=== PATIENT | male | born 1945 | race Caucasian/White ===

== ENCOUNTER 2017-03-03 10:12 | Emergency (ER) | payer MEDICARE ==
[~2017-03-03] VITALS: Ht 177.8 cm; Wt 77.1 kg
[2017-03-03 10:54] VITALS: BP 130/82
[2017-03-03 11:19] LABS: APPEARANCE,URINE CLEAR; KETONES,URINE NEGATIVE (NEGATIVE); LEUKOCYTE ESTERASE ,URINE 2+ (NEGATIVE); NITRITE,URINE NEGATIVE (NEGATIVE); PH,URINE 6 (4.5-8.0); PROTEIN,URINE NEGATIVE (NEGATIVE); UROBILINOGEN,URINE NORMAL MG/DL (0.0-1.0)
[2017-03-03 11:32] LABS: BACTERIA,URINE FEW /HPF; MUCUS,URINE FEW /LPF (NONE/OCC); SQUAMOUS EPITHELIAL CELL,UR OCCASIONAL /LPF (NONE/OCC)
[2017-03-03] MEDS ORDERED: NITROFURANTOIN100 M2 ORAL (11:40)
[2017-03-03 11:51] VITALS: BP 130/82
--- NOTE | 2017-03-03 13:47 | Emergency Room Report ---
History of Present Illness General Chief Complaint: Male Urogenital Problems Source: Patient Present Illness HPI [id number] [employer] patient with urinary frequency for 3 days. No blood No fever/chills, nausea/vomiting, abd pain, diarrhea History of enlarged prostate No rectal pain Allergies: Coded Allergies: No Known Allergies (Unverified , 03/03/17) Patient History Past Medical History: other - "testicular cancer" Past Surgical History: none Pertinent Family History: none Social History: Denies: alcohol use, drug use, smoking Immunizations: UTD Reviewed Nursing Documentation: PMH: Agreed, PSxH: Agreed Nursing Documentation-PMH Past Medical History: No History, Except For Hx Cancer: Yes - Prostate 2013 Review of Systems All Other Systems: negative except mentioned in HPI Physical Exam Vital Signs Date Time Temp Pulse Resp B/P Pulse Ox O2 Delivery O2 Flow Rate FiO2 03/03/17 10:19 97.9 87 14 130/82 96 Room Air Sp02 EP Interpretation: reviewed, normal General Appearance: normal inspection, well appearing, no apparent distress, alert, GCS 15, non-toxic Head: normocephalic, atraumatic Eyes: bilateral eye EOMI, bilateral eye PERRL ENT: normal ENT inspection, hearing grossly normal, normal voice Neck: normal inspection, full range of motion, supple, no bony tend Respiratory: normal inspection, lungs clear, normal breath sounds, no respiratory distress, no retraction, no wheezing Cardiovascular #1: regular rate, rhythm, no edema Gastrointestinal: normal inspection, normal bowel sounds, non tender, soft, no guarding, no hernia Genitourinary: no CVA tenderness Musculoskeletal: normal inspection, back normal, normal range of motion, Melania' s Sign negative Neurologic: normal inspection, alert, oriented x3, responsive, metal technician III-XII nml as tested, motor strength/tone normal, speech normal Psychiatric: normal inspection, judgement/insight normal, mood/affect normal Skin: normal inspection, normal color, no rash Medical Decision Making Diagnostic Impression: Primary Impression: UTI (urinary tract infection) Qualified Codes: N30.01 - Acute cystitis with hematuria ER Course VSS. Afebrile No systemic symptoms Rx Macrobid Uncomplicated cystitis PMD followup Last Vital Signs Date Time Temp Pulse Resp B/P Pulse Ox O2 Delivery O2 Flow Rate FiO2 03/03/17 11:51 97.9 87 14 130/82 96 Room Air Status: improved Disposition: HOME, SELF-CARE Condition: Improved Scripts Nitrofurantoin Monohyd/M-Cryst* (MACROBID 100 MG*) 100 Mg Capsule 100 MG ORAL EVERY 12 HOURS for 7 Days, #14 CAP Prov: PAPO DIXON M.D. 03/03/17 Patient Instructions: Urinary Tract Infection PAPO DIXON M.D. Mar 03, 2017 13:47
== END 2017-03-03 11:54 | disposition home or self-care (01) ==
LOC: EMR 11:23
DX: N30.01 Acute cystitis with hematuria (principal); Z85.46 Personal history of malignant neoplasm of prostate; N40.1 Benign prostatic hyperplasia with lower urinary tract symptoms
CPT/HCPCS: 81003; 87086; 99283

== ENCOUNTER 2018-03-01 18:13 | Emergency (ER) | payer MEDICARE ==
[~2018-03-01] VITALS: Ht 175.3 cm; Wt 79.4 kg
[~2018-03-01 18:13] MED LIST: NITROFURANTOIN100 M2 ORAL
[2018-03-01] MEDS ORDERED: METOPROLOL TART25 MG ORAL (18:25)
[2018-03-01] MEDS ORDERED: ATORVASTATIN CA40 MG ORAL (18:25)
[2018-03-01] MEDS ORDERED: ASPIR 8181 MG ORAL (18:25)
[2018-03-01 18:48] VITALS: BP 107/65
--- NOTE | 2018-03-01 19:05 | Emergency Room Report ---
History of Present Illness General Chief Complaint: Dyspnea/Respdistress Source: Patient, Medical Record Present Illness HPI HPI This patient with daughter, took two Xanax today, does not know the dose. Employer/friend gave him the pills. He c/o feeling sleepy. No trauma, no fever, no shortness of breath, no travel history, no leg swelling. no chest pain, no diaphoresis, no exertional complaints, no nausea, no vomiting, no diarrhea, no abdominal pain. Tolerating po fine, normal urinary output, normal bm. No syncope , LOC, dizziness, lightheadedness, headache. Mar 01, 2018 18:58 Allergies: Coded Allergies: No Known Allergies (Unverified , 03/03/17) Nursing Documentation-[facility] Past Medical History: No History, Except For Hx Cardiac Problems: Yes - stroke 2017 Hx Cancer: Yes - Prostate 2013 Review of Systems Constitutional: Reports: no symptoms Eye: Reports: no symptoms ENT: Reports: no symptoms Respiratory: Reports: no symptoms Cardiovascular: Reports: no symptoms Gastrointestinal: Reports: no symptoms Genitourinary: Reports: no symptoms Musculoskeletal: Reports: no symptoms Skin: Reports: no symptoms Psychiatric: Reports: no symptoms Neurological: Reports: no symptoms Endocrine: Reports: no symptoms Hematologic/Lymphatic: Reports: no symptoms Allergic: Reports: no symptoms Physical Exam Vital Signs Date Time Temp Pulse Resp B/P (MAP) Pulse Ox O2 Delivery O2 Flow Rate FiO2 03/01/18 18:22 97.0 89 18 108/77 94 Room Air 97.0 Sp02 EP Interpretation: reviewed, normal General Appearance: normal inspection, well appearing, no apparent distress, alert, GCS 15, non-toxic Head: normocephalic, atraumatic Eyes: bilateral eye normal inspection, bilateral eye PERRL, bilateral eye EOMI ENT: normal ENT inspection, hearing grossly normal, normal pharynx, no angioedema, normal voice, moist mucus membranes Neck: normal inspection, full range of motion, supple, no meningismus, no bony tend Respiratory: normal inspection, lungs clear, normal breath sounds, no rhonchi, no respiratory distress, no retraction, no accessory muscle use, no wheezing Cardiovascular #1: normal inspection, regular rate, rhythm, no edema Gastrointestinal: normal inspection, normal bowel sounds, non tender, soft, no mass, non-distended Musculoskeletal: gait/station normal, normal range of motion Neurologic: normal inspection, alert, oriented x3, responsive, motor strength/ tone normal Psychiatric: normal inspection, judgement/insight normal, memory normal Suicide Risk Assessment: Suicidal Ideation: No Had intent to initiate attempt: No Pt's plan for suicide attempt: No Has means to complete attempt: No Skin: normal inspection, normal color, no rash, warm/dry Medical Decision Making Diagnostic Impression: Primary Impression: Adverse effects of medication ER Course history c/w Xanax; ekg no ectopy, normal intervals, labs ok EKG Diagnostic Results EKG Time: 19:03 EP Interpretation: 80 NSR iRBBB, right axis Rate: normal Rhythm: NSR ST Segments: no acute changes ASA given to the pt in ED: No Rhythm Strip Diag. Results Rhythm Strip Time: 19:03 EP Interpretation: yes Rhythm: NSR, no PVC's, no ectopy Last Vital Signs Date Time Temp Pulse Resp B/P (MAP) Pulse Ox O2 Delivery O2 Flow Rate FiO2 03/01/18 18:48 85 18 107/65 97 Room Air 03/01/18 18:22 97.0 97.0 Status: improved Disposition: HOME, SELF-CARE Condition: Improved Patient Instructions: Form - [place] Medication Form bAdulkadir Monzon M.D. Mar 01, 2018 19:05
[2018-03-01 19:10] LABS: BASOPHILS % (AUTO) 1.7 % (0.0-2.0); EOSINOPHILS % (AUTO) 0.5 % (0.0-3.0); HEMATOCRIT 45.6 % (42.0-52.0); HEMOGLOBIN 15.5 G/DL (14.2-18.0); LYMPHOCYTES % (AUTO) 11.1 % (20.0-45.0); MEAN CORPUSCULAR VOLUME 91 FL (80-99); MONOCYTES % (AUTO) 7.2 % (1.0-10.0); NEUTROPHILS % (AUTO) 79.4 % (45.0-75.0); PLATELET COUNT 186 K/UL (150-450); RED BLOOD COUNT 4.99 M/UL (4.70-6.10); WHITE BLOOD COUNT 7.5 K/UL (4.8-10.8)
[2018-03-01 19:19] LABS: ANION GAP 6 mmol/L (5-15); BLOOD UREA NITROGEN 27 mg/dL (7-18); CALCIUM 7.9 MG/DL (8.5-10.1); CARBON DIOXIDE 24 MMOL/L (21-32); CHLORIDE 107 MMOL/L (98-107); CREATININE 0.8 MG/DL (0.55-1.30); POTASSIUM 3.6 MMOL/L (3.5-5.1); SODIUM 137 MMOL/L (136-145)
[2018-03-01 19:50] VITALS: BP 130/93
[2018-03-01 20:25] VITALS: BP 130/93
== END 2018-03-01 20:25 | disposition home or self-care (01) ==
LOC: EMR 19:03
DX: R06.00 Dyspnea, unspecified (principal); R53.1 Weakness; T42.4X5A Adverse effect of benzodiazepines, initial encounter; Y92.9 Unspecified place or not applicable; Z85.46 Personal history of malignant neoplasm of prostate; Z86.73 Personal history of transient ischemic attack (TIA), and cerebral infarction without residual deficits
CPT/HCPCS: 36415; 80048; 85025; 93005; 99283

== ENCOUNTER 2018-04-08 09:24 | Inpatient (IN) | payer MEDICARE ==
[~2018-04-08] VITALS: Ht 177.8 cm; Wt 75.3 kg
[~2018-04-08 09:24] MED LIST changes: +ASPIR 8181 MG ORAL; +ATORVASTATIN CA40 MG ORAL; +METOPROLOL TART25 MG ORAL
[2018-04-08 09:36] VITALS: BP 131/77
--- NOTE | 2018-04-08 10:07 | Emergency Room Report ---
History of Present Illness General Chief Complaint: Generalized Weakness Source: Patient Present Illness HPI Patient presents with 2 days of weakness. He states he can't swallow at this time. He's had difficulty swallowing ever since he had a stroke in July. Apparently he received TPA. According to him and his family everything had resolved although he states that he has had difficulty eating. He is being treated for depression. There is no extremity weakness right now but he feels generalized weakness. He is denies cough fever chest pain. Patient denies headache. He took aspirin this morning. He had a stroke in July. It affected his tongue. He has had much recovery but states he still has difficulty swallowing. No problems forming his words. H/O bladder CA(family reported prostate CA, prior visit listed "testicular" CA) . Prior UTIs. No fevers, chills, dysuria. No abdominal pain. No change in bowels. No NVD. No rashes. Allergies: Coded Allergies: No Known Allergies (Unverified , 03/03/17) Patient History Past Medical History: see triage record Social History: Denies: smoking, alcohol use, drug use Social History Narrative here with daughter Reviewed Nursing Documentation: PMH: Agreed; PSxH: Agreed Nursing Documentation-PMH Hx Cardiac Problems: Yes - stroke 2016 Hx Cancer: Yes - Prostate 2013 Review of Systems All Other Systems: negative except mentioned in HPI Physical Exam Vital Signs Date Time Temp Pulse Resp B/P (MAP) Pulse Ox O2 Delivery O2 Flow Rate FiO2 04/08/18 09:28 98.3 87 18 131/77 88 Room Air 98.2 Sp02 EP Interpretation: reviewed, normal General Appearance: well appearing, no apparent distress, GCS 15 Head: normocephalic Eyes: left eye other - L ptosis; bilateral eye PERRL, bilateral eye EOMI ENT: moist mucus membranes Neck: supple Respiratory: lungs clear, normal breath sounds Cardiovascular #1: regular rate, rhythm Cardiovascular #2: 2+ radial (R) Gastrointestinal: normal inspection, normal bowel sounds, non tender, no mass, non-distended Musculoskeletal: back normal, gait/station normal, normal range of motion Neurologic: alert, oriented x3, drawing frame tender III-XII nml as tested - except for ptosis, motor strength/tone normal, DTRs symmetric, sensory intact, normal gait, speech normal Psychiatric: depressed affect Skin: normal inspection, warm/dry Medical Decision Making Diagnostic Impression: Primary Impression: Dysphagia Qualified Codes: R13.10 - Dysphagia, unspecified Additional Impressions: Lacunar infarction Depression Qualified Codes: F32.89 - Other specified depressive episodes ER Course Patient with worsened weakness and difficulty swallowing last 2 days. DDx: CVA , lacunar infarct, exacerbation of depression, electrolyte abnormality amongst others. Evaluation with CT, EKG, CXR and labs. Treatment with IV hydration and cardiac observation. EKG RBBB with PVCs. CXR increase cor, no infiltrates. CT with lacunar infarct. Labs normal CBC, CMP. Elevated BNP. U tox + opiates. Patient still with weakness and stated difficulty swallowing. Need for admission, swallow study, cardiac evaluation, neurologic evaluation and possibly MRI. Admit telemetry, Dr. Nicole. (ERMD initiated eval for PMD ID.) Labs Test 04/08/18 10:15 04/08/18 11:10 04/09/18 06:40 White Blood Count 8.6 K/UL (4.8-10.8) 6.7 K/UL (4.8-10.8) Red Blood Count 4.88 M/UL (4.70-6.10) 4.53 M/UL (4.70-6.10) Hemoglobin 14.9 G/DL (14.2-18.0) 14.0 G/DL (14.2-18.0) Hematocrit 44.3 % (42.0-52.0) 41.2 % (42.0-52.0) Mean Corpuscular Volume 91 FL (80-99) 91 FL (80-99) Mean Corpuscular Hemoglobin 30.4 PG (27.0-31.0) 31.0 PG (27.0-31.0) Mean Corpuscular Hemoglobin Concent 33.6 G/DL (32.0-36.0) 34.1 G/DL (32.0-36.0) Red Cell Distribution Width 10.8 % (11.6-14.8) 10.8 % (11.6-14.8) Platelet Count 200 K/UL (150-450) 203 K/UL (150-450) Mean Platelet Volume 8.9 FL (6.5-10.1) 8.0 FL (6.5-10.1) Neutrophils (%) (Auto) 77.6 % (45.0-75.0) 74.5 % (45.0-75.0) Lymphocytes (%) (Auto) 14.3 % (20.0-45.0) 15.9 % (20.0-45.0) Monocytes (%) (Auto) 6.3 % (1.0-10.0) 7.5 % (1.0-10.0) Eosinophils (%) (Auto) 0.7 % (0.0-3.0) 1.2 % (0.0-3.0) Basophils (%) (Auto) 1.1 % (0.0-2.0) 0.9 % (0.0-2.0) Prothrombin Time 10.2 SEC (9.30-11.50) Prothromb Time International Ratio 1.0 (0.9-1.1) Activated Partial Thromboplast Time 31 SEC (23-33) Sodium Level 140 MMOL/L (136-145) 142 MMOL/L (136-145) Potassium Level 3.8 MMOL/L (3.5-5.1) 3.9 MMOL/L (3.5-5.1) Chloride Level 106 MMOL/L (98-107) 107 MMOL/L (98-107) Carbon Dioxide Level 26 MMOL/L (21-32) 29 MMOL/L (21-32) Anion Gap 8 mmol/L (5-15) 6 mmol/L (5-15) Blood Urea Nitrogen 17 mg/dL (7-18) 10 mg/dL (7-18) Creatinine 0.8 MG/DL (0.55-1.30) 0.8 MG/DL (0.55-1.30) Estimat Glomerular Filtration Rate > 60 mL/min (>60) > 60 mL/min (>60) Glucose Level 95 MG/DL (74-106) 96 MG/DL (74-106) Hemoglobin A1c 5.8 % (4.3-6.0) Calcium Level 8.0 MG/DL (8.5-10.1) 8.1 MG/DL (8.5-10.1) Total Bilirubin 0.7 MG/DL (0.2-1.0) Aspartate Amino Transf (AST/SGOT) 14 U/L (15-37) Alanine Aminotransferase (ALT/SGPT) 14 U/L (12-78) Alkaline Phosphatase 64 U/L (46-116) Total Creatine Kinase 59 U/L (26-308) Troponin I 0.000 ng/mL (0.000-0.056) Pro-B-Type Natriuretic Peptide 323 pg/mL (0-125) Total Protein 6.5 G/DL (6.4-8.2) Albumin 2.8 G/DL (3.4-5.0) Globulin 3.7 g/dL Albumin/Globulin Ratio 0.8 (1.0-2.7) Serum Alcohol < 3 mg/dL Urine Color Yellow Urine Appearance Clear Urine pH 6 (4.5-8.0) Urine Specific [place] 1.015 (1.005-1.035) Urine Protein 1+ (NEGATIVE) Urine Glucose (UA) Negative (NEGATIVE) Urine Ketones Negative (NEGATIVE) Urine Occult Blood 2+ (NEGATIVE) Urine Nitrite Negative (NEGATIVE) Urine Bilirubin Negative (NEGATIVE) Urine Urobilinogen 4 MG/DL (0.0-1.0) Urine Leukocyte Esterase 1+ (NEGATIVE) Urine RBC 2-4 /HPF (0 - 0) Urine WBC 2-4 /HPF (0 - 0) Urine Squamous Epithelial Cells Occasional /LPF Urine Bacteria Occasional /HPF (NONE) Urine Opiates Screen Positive (NEGATIVE) Urine Barbiturates Screen Negative (NEGATIVE) Phencyclidine (PCP) Screen Negative (NEGATIVE) Urine Amphetamines Screen Negative (NEGATIVE) Urine Benzodiazepines Screen Negative (NEGATIVE) Urine Cocaine Screen Negative (NEGATIVE) Urine Marijuana (THC) Screen Negative (NEGATIVE) Erythrocyte Sedimentation Rate 32 MM/HR (0-20) Triglycerides Level 66 MG/DL (30-150) Cholesterol Level 130 MG/DL (< 200) LDL Cholesterol 86 mg/dL (<100) HDL Cholesterol 38 MG/DL (40-60) Cholesterol/HDL Ratio 3.4 (3.3-4.4) Vitamin B12 Level 504 PG/ML (193-986) Folate 15.5 NG/ML (8.6-58.9) Thyroid Stimulating Hormone (TSH) 0.307 uiU/mL (0.358-3.740) EKG Diagnostic Results Rate: normal Rhythm: NSR ST Segments: no acute changes - RBBB Rhythm Strip Diag. Results EP Interpretation: yes Rhythm: NSR, no PVC's, other - PACs Chest X-Ray Diagnostic Results Chest X-Ray Diagnostic Results : Chest X-Ray Ordered: Yes # of Views/Limited/Complete: 1 View Indication: Other EP Interpretation: Yes Interpretation: no consolidation, no effusion, no pneumothorax, other - inc cor Impression: Other Electronically Signed by: Ishan Medina MD CT/MRI/US Diagnostic Results CT/MRI/US Diagnostic Results : Imaging Test Ordered: head Impression lacunar infarct (old) Last Vital Signs Date Time Temp Pulse Resp B/P (MAP) Pulse Ox O2 Delivery O2 Flow Rate FiO2 04/08/18 09:36 98.2 89 18 131/77 97 Room Air 98.2 Status: unchanged Disposition: ADMITTED INPATIENT Condition: Serious Referrals: NOT CHOSEN SHRAVAN/,REFERRING (PCP) Ishan Medina M.D. Apr 08, 2018 10:07
[2018-04-08 10:30] LABS: BASOPHILS % (AUTO) 1.1 % (0.0-2.0); EOSINOPHILS % (AUTO) 0.7 % (0.0-3.0); HEMATOCRIT 44.3 % (42.0-52.0); HEMOGLOBIN 14.9 G/DL (14.2-18.0); LYMPHOCYTES % (AUTO) 14.3 % (20.0-45.0); MEAN CORPUSCULAR VOLUME 91 FL (80-99); MONOCYTES % (AUTO) 6.3 % (1.0-10.0); NEUTROPHILS % (AUTO) 77.6 % (45.0-75.0); PLATELET COUNT 200 K/UL (150-450); RED BLOOD COUNT 4.88 M/UL (4.70-6.10); RED CELL DISTRIBUTION WIDTH 10.8 % (11.6-14.8); WHITE BLOOD COUNT 8.6 K/UL (4.8-10.8)
[2018-04-08 10:39] LABS: ANION GAP 8 mmol/L (5-15); BLOOD UREA NITROGEN 17 mg/dL (7-18); CARBON DIOXIDE 26 MMOL/L (21-32); CHLORIDE 106 MMOL/L (98-107); CREATININE 0.8 MG/DL (0.55-1.30); POTASSIUM 3.8 MMOL/L (3.5-5.1); SODIUM 140 MMOL/L (136-145)
--- NOTE | 2018-04-08 10:45 | Diagnostic Imaging Report ---
Indications: Left-sided weakness there is 2 days, difficulty swallowing Technique: Spiral acquisitions obtained through the brain. Angled axial and coronal 5 x 5 mm slices were reconstructed. Total dose length product 1372.57 mGycm. CTDI vol(s) 70.38 mGy. Dose reduction achieved using automated exposure control Comparison: None. Findings: There is age-related enlargement of the ventricles and extra axial CSF spaces. There is periventricular deep white matter chronic ischemic change. Old lacunar infarct is seen in the anterior limb of the right internal capsule. No acute intracranial hemorrhage nor edema, mass effect, nor midline shift. Intact calvarium. Visualized orbits and sinuses are unremarkable. The mastoids are clear. Normal black-white differentiation. Impression: Chronic and age-related changes, as described Old right internal capsule lacunar infarct Negative for acute intracranial bleed or mass effect The CT scanner at [facility] is accredited by the [employer] and the scans are performed using protocols designed to limit radiation exposure to as low as reasonably achievable to attain images of sufficient resolution adequate for diagnostic evaluation.
[2018-04-08 10:49] LABS: ALANINE AMINOTRANSFERASE 14 U/L (12-78); ALBUMIN 2.8 G/DL (3.4-5.0); ALBUMIN/GLOBULIN RATIO 0.8 (1.0-2.7); ALKALINE PHOSPHATASE 64 U/L (46-116); ASPARTATE AMINO TRANSFERASE 14 U/L (15-37); BILIRUBIN,TOTAL 0.7 MG/DL (0.2-1.0); CREATINE KINASE 59 U/L (26-308)
[2018-04-08 11:38] LABS: APPEARANCE,URINE CLEAR; BILIRUBIN, URINE NEGATIVE (NEGATIVE); GLUCOSE, URINE (UA) NEGATIVE (NEGATIVE); KETONES,URINE NEGATIVE (NEGATIVE); LEUKOCYTE ESTERASE ,URINE 1+ (NEGATIVE); NITRITE,URINE NEGATIVE (NEGATIVE); PH,URINE 6 (4.5-8.0); PROTEIN,URINE 1+ (NEGATIVE); UROBILINOGEN,URINE 4 MG/DL (0.0-1.0)
[2018-04-08 11:50] LABS: COLOR,URINE YELLOW
[2018-04-08 12:04] VITALS: BP 125/66
--- NOTE | 2018-04-08 12:05 | Diagnostic Imaging Report ---
Indication: Chest pain Technique: One view of the chest Comparison: none Findings: The heart is enlarged. There are atelectatic changes at both lung bases. No definite acute infiltrates, effusions, or congestion. The aorta is tortuous and calcified Impression: Cardiomegaly. No definite acute process
[2018-04-08 13:38] VITALS: BP 133/89
[2018-04-08] MEDS ORDERED: LORazepam 1mg tab ORAL PRN (14:00)
[2018-04-08] MEDS ORDERED: Albuterol/Ipratropium 3ml neb HHN PRN (14:00)
[2018-04-08] MEDS ORDERED: Miralax 17gm pkt ORAL PRN (14:00)
--- NOTE | 2018-04-08 14:11 | History & Physical ---
Tiffany Asif NP 04/08/18 1411: History and Physical History & Physicial dictated #[id number] Vladimir Nicole MD 04/08/182020: History and Physical History & Physicial The patient was seen and examined at bedside and all new and available data was reviewed in the patients chart. I agree with the above findings, impression and plan. (Patient seen earlier today. Signature stamp does not reflect patient encounter time.). -MD Yefri Bernabe Jacqueline Robles NP Apr 08, 2018 14:11 Vladimir Nicole MD Apr 08, 2018 20:21
--- NOTE | 2018-04-08 15:01 | GI Initial Consult Note ---
History of Present Illness General Date patient seen: Apr 08, 2018 Time patient seen: 14:55 Reason for Hospitalization: Generalized Weakness Referring physician: LUCIA GUY Reason for Consultation: DYSPHAGIA Present Illness HPI Patient presents with 2 days of weakness. He states he can't swallow at this time. He's had difficulty swallowing ever since he had a stroke in July. Apparently he received TPA. According to him and his family everything had resolved although he states that he has had difficulty eating. He is being treated for depression. There is no extremity weakness right now but he feels generalized weakness. He is denies cough fever chest pain. Patient denies headache. GI consulted for dysphagia. Pt seen, awake A&Ox4 NAD with no active s/sx of N/V /D. Has c/o of dysphagia which is causing him to have a loss of appetite. In addition, has c/o of abdominal bloating and constipation. No anemia. No leukocytosis. Normal LFTs. No history of EGD. Last colonoscopy 10+ years ago. Home Meds Active Scripts Nitrofurantoin Monohyd/M-Cryst* (MACROBID 100 MG*) 100 Mg Capsule, 100 MG ORAL EVERY 12 HOURS for 7 Days, #14 CAP Prov:PAPO DIXON M.D. 03/03/17 Reported Medications Aspirin* (ASPIR 81*) 81 Mg Tablet.dr, 81 MG ORAL DAILY, TAB 03/01/18 Atorvastatin Calcium* (ATORVASTATIN CALCIUM*) 40 Mg Tablet, 80 MG ORAL BEDTIME, TAB 03/01/18 Metoprolol Tartrate* (METOPROLOL TARTRATE*) 25 Mg Tablet, 25 MG ORAL EVERY 12 HOURS, TAB 03/01/18 Med list reviewed/reconciled: Yes Allergies: Coded Allergies: No Known Allergies (Unverified , 03/03/17) Patient History History Provided By: Patient, Medical Record PMH Narrative Past Medical History: see triage record Social History: Denies: smoking Reviewed Nursing Documentation: PMH: Agreed; PSxH: Agreed Nursing Documentation-PMH Hx Cardiac Problems: Yes - stroke 2016 Hx Cancer: Yes - Prostate 2012 Social History: Denies: smoking, alcohol use, drug use, other Review of Systems All Other Systems: negative except mentioned in HPI Physical Exam Vital Signs Date Time Temp Pulse Resp B/P (MAP) Pulse Ox O2 Delivery O2 Flow Rate FiO2 04/08/18 09:28 98.3 87 18 131/77 88 Room Air 98.2 Sp02 EP Interpretation: reviewed, normal Labs Laboratory Tests Test 04/08/18 10:15 04/08/18 11:10 White Blood Count 8.6 K/UL (4.8-10.8) Red Blood Count 4.88 M/UL (4.70-6.10) Hemoglobin 14.9 G/DL (14.2-18.0) Hematocrit 44.3 % (42.0-52.0) Mean Corpuscular Volume 91 FL (80-99) Mean Corpuscular Hemoglobin 30.4 PG (27.0-31.0) Mean Corpuscular Hemoglobin Concent 33.6 G/DL (32.0-36.0) Red Cell Distribution Width 10.8 % (11.6-14.8) L Platelet Count 200 K/UL (150-450) Mean Platelet Volume 8.9 FL (6.5-10.1) Neutrophils (%) (Auto) 77.6 % (45.0-75.0) H Lymphocytes (%) (Auto) 14.3 % (20.0-45.0) L Monocytes (%) (Auto) 6.3 % (1.0-10.0) Eosinophils (%) (Auto) 0.7 % (0.0-3.0) Basophils (%) (Auto) 1.1 % (0.0-2.0) Prothrombin Time 10.2 SEC (9.30-11.50) Prothromb Time International Ratio 1.0 (0.9-1.1) Activated Partial Thromboplast Time 31 SEC (23-33) Sodium Level 140 MMOL/L (136-145) Potassium Level 3.8 MMOL/L (3.5-5.1) Chloride Level 106 MMOL/L (98-107) Carbon Dioxide Level 26 MMOL/L (21-32) Anion Gap 8 mmol/L (5-15) Blood Urea Nitrogen 17 mg/dL (7-18) Creatinine 0.8 MG/DL (0.55-1.30) Estimat Glomerular Filtration Rate > 60 mL/min (>60) Glucose Level 95 MG/DL (74-106) Calcium Level 8.0 MG/DL (8.5-10.1) L Total Bilirubin 0.7 MG/DL (0.2-1.0) Aspartate Amino Transf (AST/SGOT) 14 U/L (15-37) L Alanine Aminotransferase (ALT/SGPT) 14 U/L (12-78) Alkaline Phosphatase 64 U/L (46-116) Total Creatine Kinase 59 U/L (26-308) Troponin I 0.000 ng/mL (0.000-0.056) Pro-B-Type Natriuretic Peptide 323 pg/mL (0-125) H Total Protein 6.5 G/DL (6.4-8.2) Albumin 2.8 G/DL (3.4-5.0) L Globulin 3.7 g/dL Albumin/Globulin Ratio 0.8 (1.0-2.7) L Serum Alcohol < 3 mg/dL Urine Color Yellow Urine Appearance Clear Urine pH 6 (4.5-8.0) Urine Specific [place] 1.015 (1.005-1.035) Urine Protein 1+ (NEGATIVE) H Urine Glucose (UA) Negative (NEGATIVE) Urine Ketones Negative (NEGATIVE) Urine Occult Blood 2+ (NEGATIVE) H Urine Nitrite Negative (NEGATIVE) Urine Bilirubin Negative (NEGATIVE) Urine Urobilinogen 4 MG/DL (0.0-1.0) H Urine Leukocyte Esterase 1+ (NEGATIVE) H Urine RBC 2-4 /HPF (0 - 0) H Urine WBC 2-4 /HPF (0 - 0) Urine Squamous Epithelial Cells Occasional /LPF Urine Bacteria Occasional /HPF (NONE) Urine Opiates Screen Positive (NEGATIVE) H Urine Barbiturates Screen Negative (NEGATIVE) Phencyclidine (PCP) Screen Negative (NEGATIVE) Urine Amphetamines Screen Negative (NEGATIVE) Urine Benzodiazepines Screen Negative (NEGATIVE) Urine Cocaine Screen Negative (NEGATIVE) Urine Marijuana (THC) Screen Negative (NEGATIVE) General Appearance: well appearing, no apparent distress, alert Head: normocephalic EENT: PERRL/EOMI, normal ENT inspection Neck: supple Respiratory: normal breath sounds, no respiratory distress Cardiovascular: normal rate Gastrointestinal: normal inspection, non tender, soft, normal bowel sounds, non -distended Rectal: deferred Genitourinary: deferred Musculoskeletal: normal inspection, back normal Neurologic: normal inspection, alert, oriented x3, responsive Psychiatric: normal inspection, judgement/insight normal, memory normal Skin: normal inspection, normal color, no rash, warm/dry, palpation normal, well hydrated Lymphatic: normal inspection, no adenopathy Current Medications Current Medications Medications (Trade) Dose Ordered Sig/Jeffery Route PRN Reason Start Time Stop Time Status Last Admin Dose Admin Acetaminophen (Tylenol) 650 mg Q4H PRN ORAL Mild Pain (Pain Scale 1-3) 04/08/18 14:00 05/08/18 13:59 Acetaminophen (Tylenol) 650 mg Q4H PRN ORAL T>100.5 04/08/18 14:00 05/08/18 13:59 Albuterol/ Ipratropium (Albuterol/ Ipratropium) 3 ml Q4H PRN HHN Shortness of Breath 04/08/18 14:00 04/13/18 13:59 Aspirin (ASA) 81 mg DAILY ORAL 04/09/18 09:00 05/09/18 08:59 Atorvastatin Calcium (Lipitor) 80 mg BEDTIME ORAL 04/08/18 21:00 05/08/18 20:59 Cefepime HCl 1 gm/ Dextrose 55 ml @ 110 mls/hr Q12HR IVPB 04/08/18 15:30 04/15/18 15:29 Dextrose (Dextrose 50%) 25 ml STAT PRN IV Hypoglycemia 04/08/18 14:00 05/08/18 13:59 Dextrose (Dextrose 50%) 50 ml STAT PRN IV Hypoglycemia 04/08/18 14:00 05/08/18 13:59 Docusate Sodium (Colace) 100 mg EVERY 12 HOURS ORAL 04/08/18 21:00 05/08/18 20:59 Famotidine (Pepcid) 40 mg DAILY ORAL 04/09/18 09:00 05/09/18 08:59 Gadobutrol (Gadavist) 7.5 mmol NOW PRN IV Radiology Procedure 04/09/18 04:00 04/12/18 13:53 Heparin Sodium (Porcine) (Heparin 5000 units/ml) 5,000 units EVERY 12 HOURS SUBQ 04/08/18 21:00 05/08/18 20:59 Lorazepam (Ativan) 1 mg Q4H PRN ORAL For Anxiety 04/08/18 14:00 04/15/18 13:59 Metoprolol Tartrate (Lopressor) 25 mg EVERY 12 HOURS ORAL 04/08/18 21:00 05/08/18 20:59 Polyethylene Glycol (Miralax) 17 gm DAILYPRN PRN ORAL Constipation 04/08/18 14:00 05/08/18 13:59 Sodium Chloride 1,000 ml @ 50 mls/hr Q20H IV 04/08/18 15:00 05/08/18 14:59 GI: Plan Problems: (1) Abdominal bloating (2) Constipation (3) Dysphagia (4) CVA (cerebral vascular accident) Plan pt currently on diet, tolerating ST evaluation for dysphagia fu esophagram KUB for abdominal distention bowel regime probiotics simethicone prn MVI zofran prn fu labs outpatient GI procedures Discussed with Dr. Reza. Thank you for this patient referral, we will follow. The patient was seen and examined at bedside and all new and available data was reviewed in the patients chart. I agree with the above findings, impression and plan. (Patient seen earlier today. Signature stamp does not reflect patient encounter time.). - MD Consuelo [facility] FURNACE OPERATOR Apr 08, 2018 15:01
[2018-04-08] MEDS ORDERED: Simethicone 80mg tab ORAL PRN (15:15)
[2018-04-08] MEDS ORDERED: Barium EZ Gas II granules MC PRN (15:15)
[2018-04-08] MEDS ORDERED: Barium EZ HD MC PRN (15:15)
[2018-04-08] MEDS ORDERED: Varibar Thin Liquid powder 148gm MC PRN (15:15)
[2018-04-08] MEDS: Cefepime HCl 1 GM in D5W 55 ML IVPB SCH (16:06)
[2018-04-08] MEDS: Lactobacillus-GG tablet ORAL SCH (17:17)
[2018-04-08] MEDS: Docusate 100mg cap ORAL SCH (17:17)
--- NOTE | 2018-04-08 18:00 | HX and Phyl Repo 2 Sig ---
DATE OF ADMISSION: 04/08/2018 CHIEF COMPLAINT: Weakness. HISTORY OF PRESENT ILLNESS: The patient is a 72-year-old male, who came from home with history of stroke last year. Apparently, the patient claims he has been doing well, although after the stroke, he was unable to eat and swallow well. He stated that he had been having difficulty eating and was unable to eat both solids or liquids and has to eat slowly as food "feels stuck in his throat". Earlier today, he was not able to eat breakfast. He woke up with extreme generalized weakness and felt like his legs would give out. He denied any cough, any fever or chest pain. He has medical history significant for prior stroke and prostatic CA. Evaluation at ED, his vital signs were stable. He had a head CT scan that showed chronic age-related changes with an old right internal capsule lacunar infarct. Negative for acute intracranial bleed or mass effect. Troponin was negative. Urine showed 1+ leukocyte esterase, 2 to 4 rbc's, 2+ occult blood, and 1+ protein urine. Toxicology was positive for opiates. Due to his risk factors, the patient was then admitted to telemetry for cardiac and neurologic evaluation. ALLERGIES: The patient has no known allergies. MEDICATIONS: From home include aspirin, metoprolol and atorvastatin 80 mg daily. SOCIAL HISTORY: The patient denies smoking and lives with family, is independent of ADLs. REVIEW OF SYSTEMS: CONSTITUTION: Denies fever or chills. HEENT: Denies ear discharge or pain. Denies nasal congestion. No PND. CARDIOVASCULAR: Denies chest pain or palpitations. RESPIRATORY: He has occasional cough. Denies shortness of breath. GASTROINTESTINAL: Denies constipation, diarrhea, nausea or vomiting. GENITOURINARY: Denies dysuria or hematuria. HEMATOLOGIC: Denies easy bleeding or easy bruising. NEUROLOGIC: The patient had a prior stroke with left-side weakness, although able to move extremities well. PHYSICAL EXAMINATION: VITAL SIGNS: On arrival to ED, blood pressure was 131/77, pulse is 89, and 97% oxygen saturation on room air. The patient was afebrile. HEENT: [place] palpebra conjunctivae. EOMs are intact. There was a slight left upper lid lag. NECK: Supple. CARDIOVASCULAR: S1 and S2. Regular with occasional PACs. RESPIRATORY: Lungs are clear to auscultation. No use of accessory muscles of respiration. ABDOMEN: Soft and nontender. Positive bowel sounds. EXTREMITIES: No edema. No cyanosis. NEUROLOGIC: Cranials II through XII grossly intact. The patient was able to ambulate with a steady gait. LABORATORY AND DIAGNOSTIC DATA: WBC 8.6, hemoglobin 14.9, hematocrit 44 and platelet 200. Sodium 140, potassium 3.8, BUN 17 and creatinine 0.8. AST 14, ALT 14. BNP 323. Troponin negative. Urine wbc's 2 to 4, urine rbc's 2 to 4, urine leukocyte esterase 1+, 2+ occult blood and 1+ protein. Urine toxicology positive for opiates. Chest x-ray showed cardiomegaly with no definite acute process. Head CT with chronic age-related changes. Negative for acute intracranial bleed or mass effect. ASSESSMENT: 1. Generalized weakness with dysphagia, possible CVA. 2. 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 3. Pyuria, possible UTI. 4. Hypertension. PLAN: Admit the patient to telemetry under the service of Dr. Nicole. The patient to be placed on neuro checks and strict aspiration precaution. The patient for PT, OT and speech evaluation. MRI with and without contrast was ordered. Neurology consultation with Dr. Monahan. The patient was complaining of dysphagia. We will get Dr. Canseco consult. Pureed diet for now until seen by speech therapy and pending recommendations for diet. Start empirically on IV antibiotic pending urine culture results. Continue on aspirin and statin and check lipid panel, TSH and labs tomorrow. Fall precaution. Above findings discussed with supervising physician who agrees with the plan of care. Vladimir Nicole M.D. Tiffany Asif N.P. DR: NUHA JOB#: [id number] CC: SHIV
[2018-04-08 20:00] VITALS: BP 133/58
[2018-04-08] MEDS: Miralax 17gm pkt ORAL SCH (20:59)
[2018-04-08] MEDS ORDERED: Docusate 100mg cap ORAL SCH (21:00)
[2018-04-08] MEDS ORDERED: Lisinopril 20mg tab ORAL SCH (21:00)
--- NOTE | 2018-04-08 21:01 | Consultation ---
Consult Note Consult Note [facility] CONSULTATION - NEUROLOGY April 08, 2018 BREAKER UP: Mike Wolf M.D. REFERRING PHYSICIAN: Vladimir Nicole M.D. HISTORY: Mr. 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 He was brought to the [facility] Emergency Room for a feeling of being ill, having swallowing problems, feeling generally fatigued, feeling generally weak, and having blood in the urine. This consultation was requested to evaluate the patient from a neurological point of view for possible new stroke. 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 FAMILY HISTORY: No family history of neurologic illness. PERSONAL HISTORY: Home: He lives with his . 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 Habits: There is no history of tobacco use, but there is a history of social alcohol use. PHYSICAL EXAMINATION: GENERAL: He is a well-developed, well-nourished, gentleman in no acute distress. VITAL SIGNS: Pulse= 97/minute. WN=006/58 Resp=20/minute. Temperature= 97.0 degrees F. HEAD: Normocephalic and atraumatic. NECK: No rigidity was noted. EENT: Benign. NEUROLOGIC EXAMINATION: MENTAL STATUS EXAMINATION: He was awake and alert. He was oriented to person, place and time. He was able to recall 3/3 words immediately but could only remember 2/3 after 1 minute and after 3 minutes. He was able to remember Presidents Trump and Obama only. His mathematical skills were impaired. His visuospatial function was relatively good. SPEECH: He had a mild dysarthria. LANGUAGE: He had an anomia for low and mid-frequency words. CRANIAL NERVE EXAMINATION: II: The visual ann were intact to confrontation testing. III, IV, : External ocular movements were full and pupils 3 mm in diameter equal, round, regular and reactive to light. He had 2 mm of ptosis on the left. V: The facial sensations were normal, and the temporales, masseters and pterygoids functioned normally. VII: He had a trace left VII central paresis. VIII: He was able to hear well bilaterally and had no nystagmus. IX: The palate moved symmetrically on phonation. X: There was no hoarseness of voice. XI: The sternocleidomastoids and trapezii functioned normally. XII: The tongue was in the midline without any fasciculations or atrophy. MOTOR SYSTEM: The tone was normal in all 4 extremities. Examination of muscle mass revealed no focal wasting. Examination of power revealed grade 5/5 power except for G 4+/5 in the left finger extensors and iliopsoas. SENSORY EXAMINATION: Sensations to pinprick and light touch were normal. COORDINATION: [id number] testing was performed well. REFLEXES: 2+ on the left and 2++ on the right at the biceps, triceps, brachioradialis, and knees. 0 at both ankles. Plantar responses were flexor bilaterally. STANCE: He stood up with support. GAIT: He walked with support with a mildly left paretic gait. DIAGNOSTIC IMPRESSION: 1. Mr. 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 2. He was brought to the [facility] Emergency Room for a feeling of being ill, having swallowing problems, feeling generally fatigued, feeling generally weak, and having blood in the urine. 2. On neurological examination at this time, he does have problems with recent and remote memory, higher cognitive function, and language. He also has left sided ptosis and a left hemiparesis with brisker reflexes on the left. He walks with a left paretic gait. 3. The computed tomography scan of the brain without contrast reveals an old lacunar infarct in the anterior limb of the right internal capsule. 4. The patient's history and neurological examination are most compatible with a remote right brain infarct with a left hemiparesis and recent decline in function due to possible poor nutrition, an acute infection, or less likely a new cerebral infarct. RECOMMENDATIONS: 1. The patient should be observed closely. 2. MRI of brain to evaluate for acte infarct. 3. An EEG will be ordered to evaluate the patient for inter-ictal phenomena as in the past he has had a seizure. 4. Carotid duplex to evaluate CVD. 5. Treatment of hypertension and dyslipidemia. 6. Continue Aspirin 81 mg daily for now. Thank you for entrusting me with the care of Mr. Tejeda. I shall follow him with you. Mike Wolf M.D., M.S.P.H. Neurologist & Clinical Neurophysiologist MIKE WOLF Apr 08, 2018 21:01
[2018-04-08] MEDS: Atorvastatin 80mg tab ORAL SCH (21:11)
[2018-04-08] MEDS: Metoprolol 25mg tab ORAL SCH (21:11)
[2018-04-08] MEDS: Heparin 5000 units/ml inj SUBQ SCH (21:12)
[2018-04-09] VITALS: BP 124/76
[2018-04-09] MEDS ORDERED: Gadavist 7.5mMol/7.5ml vial IV PRN (04:00)
[2018-04-09 07:45] LABS: BASOPHILS % (AUTO) 0.9 % (0.0-2.0); EOSINOPHILS % (AUTO) 1.2 % (0.0-3.0); HEMATOCRIT 41.2 % (42.0-52.0); LYMPHOCYTES % (AUTO) 15.9 % (20.0-45.0); MEAN CORPUSCULAR VOLUME 91 FL (80-99); MONOCYTES % (AUTO) 7.5 % (1.0-10.0); NEUTROPHILS % (AUTO) 74.5 % (45.0-75.0); PLATELET COUNT 203 K/UL (150-450); RED BLOOD COUNT 4.53 M/UL (4.70-6.10); RED CELL DISTRIBUTION WIDTH 10.8 % (11.6-14.8); WHITE BLOOD COUNT 6.7 K/UL (4.8-10.8)
[2018-04-09 07:53] VITALS: BP 130/70
[2018-04-09 07:54] LABS: ANION GAP 6 mmol/L (5-15); BLOOD UREA NITROGEN 10 mg/dL (7-18); CALCIUM 8.1 MG/DL (8.5-10.1); CARBON DIOXIDE 29 MMOL/L (21-32); CHLORIDE 107 MMOL/L (98-107); CREATININE 0.8 MG/DL (0.55-1.30); POTASSIUM 3.9 MMOL/L (3.5-5.1); SODIUM 142 MMOL/L (136-145)
[2018-04-09 08:11] LABS: CHOLESTEROL 130 MG/DL (< 200); HDL CHOLESTEROL 38 MG/DL (40-60); TRIGLYCERIDES 66 MG/DL (30-150)
[2018-04-09] MEDS: Heparin 5000 units/ml inj SUBQ SCH ×2 (08:18→21:00)
[2018-04-09] MEDS: Cefepime HCl 1 GM in D5W 55 ML IVPB SCH ×2 (08:20→21:33)
[2018-04-09] MEDS: Lactobacillus-GG tablet ORAL SCH ×3 (08:26→17:08)
[2018-04-09] MEDS: Metoprolol 25mg tab ORAL SCH ×2 (08:26→21:34)
[2018-04-09] MEDS: Aspirin Baby 81mg ORAL SCH (08:26)
[2018-04-09] MEDS: Docusate 100mg cap ORAL SCH ×3 (08:26→17:08)
[2018-04-09] MEDS ORDERED: Lisinopril 20mg tab ORAL SCH (09:00)
[2018-04-09 12:06] VITALS: BP 120/80
--- NOTE | 2018-04-09 12:42 | Diagnostic Imaging Report ---
Indication: Difficulty swallowing, sensation of food getting stuck Technique: Patient ingested effervescent granules, oral thick and thin liquid barium, and rapid sequence spot images and overhead images were obtained. Total fluoroscopy time 2 minutes. Total dose area product 457 dGycm2 Number of images: 259 Comparison: none Findings: There is marked distal esophageal dysmotility. There is a very slight weblike narrowing at the junction of the cervical and the thoracic esophagus. There is unusual appearance of the distal esophagus. There is apparent narrowing at the gastroesophageal sphincter which appears to be more related to dysmotility than stricture. The delay in contrast transit and the degree of proximal dilatation appears somewhat out of proportion to the degree of narrowing, however. There is a small sliding-type hiatal hernia. There is questionably an outpouching of the distal esophagus remained is filled with contrast, but this appears to contract and therefore probably does not represent a diverticulum. There is questionably a small amount of gastroesophageal reflux observed under fluoroscopy. A single view of the stomach is grossly unremarkable. Impression: Unusual appearance to the distal esophagus, with apparent in constant narrowing at the distal esophageal sphincter, proximal dilatation and delayed emptying somewhat out of proportion to the degree of narrowing. Findings probably just represents marked distal esophageal dysmotility. However, the possibility of underlying anatomic stricture cannot be completely ruled out, and endoscopy should be considered. Small hiatal hernia Unusual mild weblike narrowing of the proximal esophagus at the junction of the cervical and the thoracic esophagus. Significance/etiology uncertain.
--- NOTE | 2018-04-09 12:56 | Diagnostic Imaging Report ---
Indication: Abdominal distention Technique: Supine view of the abdomen Comparison: none Findings: Considerable stool is seen throughout the colon. Diffusely mildly dilated small bowel loops are demonstrated. Surgical anjelica are seen in the pelvic region. There is lumbar scoliotic deformity and considerable secondary degenerative change. Surgical anjelica are also seen in the epigastric region. No unusual masses or calcifications. Impression: Considerable colonic stool, may indicate some constipation. Diffusely mildly distended gas-filled small bowel loops, could indicate ileus Evidence of prior surgery
--- NOTE | 2018-04-09 13:04 | Diagnostic Imaging Report ---
Indication: Dysphagia, left-sided ptosis, left-sided weakness x2 days Technique: sagittal T1 fast spin echo, axial T1 and T2 FLAIR PROPELLER,, sagittal T2 FLAIR PROPELLER, axial T2 FS PROPELLER, T2* GRE, axial diffusion weighted images, post contrast axial and coronal T1 FLAIR PROPELLER images. ADC and exponential ADC maps generated Comparison: Reference made to brain CT dated 04/08/2018 Findings: . No abnormal areas of restricted diffusion to suggest acute infarction. No acute hemorrhage or edema. Punctate focus of susceptibility artifact is seen in the posterior right parietal lobe and 2 similar lesions in the basal ganglia, one each on the right and the left.. No mass effect nor midline shift. No abnormal contrast enhancement. There is age-related enlargement of the ventricles and extra axial CSF spaces. There is fairly extensive periventricular deep white matter high T2 signal, consistent with chronic ischemic changes.. There is an empty sella incidentally noted. There is evidence of prior bilateral cataract surgery. There is some ethmoid and sphenoid sinus disease. . Impression: Chronic and age-related changes, as described A few small punctate areas of susceptibility artifact, in the bilateral basal ganglia and right parietal lobe, consistent with old microhemorrhage is Negative for acute intracranial bleed, mass effect, infarct, or contrast enhancing lesion
--- NOTE | 2018-04-09 15:59 | General Progress Note ---
Assessment/Plan Assessment/Plan Assessment - dysphagia - constipation, per KUB Recommendations - dulcolax supp. - EGD in am Subjective Allergies: Coded Allergies: No Known Allergies (Unverified , 03/03/17) Subjective above noted seen in radiology some chronic cervical level dysphagia Objective Last 24 Hour Vital Signs Date Time Temp Pulse Resp B/P (MAP) Pulse Ox O2 Delivery O2 Flow Rate FiO2 04/09/18 12:06 98.2 75 20 120/80 (93) 97 98.2 04/09/18 11:56 75 04/09/18 08:26 74 130/70 04/09/18 07:53 98.2 74 20 130/70 (90) 97 98.2 04/09/18 07:28 74 04/09/18 07:22 Room Air 04/09/18 04:00 77 04/09/18 00:00 98.2 60 20 124/76 (92) 97 98.2 04/09/18 00:00 72 04/08/18 21:11 97 133/58 04/08/18 21:00 Room Air 04/08/18 21:00 Room Air 04/08/18 20:00 97.0 97 20 133/58 (83) 95 97.0 04/08/18 20:00 79 04/08/18 16:00 76 04/08/18 16:00 76 Intake and Output 04/08/18 04/09/18 19:00 07:00 Intake Total 380 ml 50 ml Balance 380 ml 50 ml Intake Oral 120 ml IV Total 260 ml 50 ml # Voids 2 2 # Bowel Movements 1 1 Laboratory Tests 04/09/18 06:40: White Blood Count 6.7, Red Blood Count 4.53L, Hemoglobin 14.0L, Hematocrit 41.2L , Mean Corpuscular Volume 91, Mean Corpuscular Hemoglobin 31.0, Mean Corpuscular Hemoglobin Concent 34.1, Red Cell Distribution Width 10.8L, Platelet Count 203, Mean Platelet Volume 8.0, Neutrophils (%) (Auto) 74.5, Lymphocytes (%) (Auto) 15.9L, Monocytes (%) (Auto) 7.5, Eosinophils (%) (Auto) 1.2, Basophils (%) (Auto) 0.9, Erythrocyte Sedimentation Rate 32H, Sodium Level 142, Potassium Level 3.9, Chloride Level 107, Carbon Dioxide Level 29, Anion Gap 6, Blood Urea Nitrogen 10, Creatinine 0.8, Estimat Glomerular Filtration Rate > 60, Glucose Level 96, Calcium Level 8.1L, Triglycerides Level 66, Cholesterol Level 130, LDL Cholesterol 86, HDL Cholesterol 38L, Cholesterol/HDL Ratio 3.4, Vitamin B12 Level 504, Vitamin D 25-Hydroxy [Pending], 25-Hydroxy Vitamin D2 [Pending], 25-Hydroxy Vitamin D3 [Pending], Folate 15.5, Thyroid Stimulating Hormone (TSH) 0.307L, Rapid Plasma Reagin [Pending] Height (Feet): 5 Height (Inches): 10.00 Weight (Pounds): 166 Objective WDWN NCAT supple CTA RRR soft ND no edema non focal Amy Canseco MD Apr 09, 2018 15:58
[2018-04-09 16:08] VITALS: BP 107/76
--- NOTE | 2018-04-09 17:50 | Cardiology Report ---
APPROVED REPORT EKG Measurement Heart [id number] [place] [id number] Sinus rhythm with occasional premature ventricular complexes and premature atrial complexes Right bundle branch block Abnormal ECG
--- NOTE | 2018-04-09 17:54 | Neurology Progress Note ---
Interim History Interim History Interim History Mr. Tejeda feels better today. He slept relatively well last night. He feels less fatigued. He is able to swallow well. He feels steadier on his feet. The strength is stable. As per his he is close to his normal self. Objective Physical Exam Last Vital Signs Date Time Temp Pulse Resp B/P (MAP) Pulse Ox O2 Delivery O2 Flow Rate FiO2 04/09/18 16:08 98.2 90 20 107/76 (86) 97 98.2 04/09/18 07:22 Room Air Laboratory Tests Test 04/09/18 06:40 White Blood Count 6.7 K/UL (4.8-10.8) Red Blood Count 4.53 M/UL (4.70-6.10) L Hemoglobin 14.0 G/DL (14.2-18.0) L Hematocrit 41.2 % (42.0-52.0) L Mean Corpuscular Volume 91 FL (80-99) Mean Corpuscular Hemoglobin 31.0 PG (27.0-31.0) Mean Corpuscular Hemoglobin Concent 34.1 G/DL (32.0-36.0) Red Cell Distribution Width 10.8 % (11.6-14.8) L Platelet Count 203 K/UL (150-450) Mean Platelet Volume 8.0 FL (6.5-10.1) Neutrophils (%) (Auto) 74.5 % (45.0-75.0) Lymphocytes (%) (Auto) 15.9 % (20.0-45.0) L Monocytes (%) (Auto) 7.5 % (1.0-10.0) Eosinophils (%) (Auto) 1.2 % (0.0-3.0) Basophils (%) (Auto) 0.9 % (0.0-2.0) Erythrocyte Sedimentation Rate 32 MM/HR (0-20) H Sodium Level 142 MMOL/L (136-145) Potassium Level 3.9 MMOL/L (3.5-5.1) Chloride Level 107 MMOL/L (98-107) Carbon Dioxide Level 29 MMOL/L (21-32) Anion Gap 6 mmol/L (5-15) Blood Urea Nitrogen 10 mg/dL (7-18) Creatinine 0.8 MG/DL (0.55-1.30) Estimat Glomerular Filtration Rate > 60 mL/min (>60) Glucose Level 96 MG/DL (74-106) Calcium Level 8.1 MG/DL (8.5-10.1) L Triglycerides Level 66 MG/DL (30-150) Cholesterol Level 130 MG/DL (< 200) LDL Cholesterol 86 mg/dL (<100) HDL Cholesterol 38 MG/DL (40-60) L Cholesterol/HDL Ratio 3.4 (3.3-4.4) Vitamin B12 Level 504 PG/ML (193-986) Vitamin D 25-Hydroxy Pending 25-Hydroxy Vitamin D2 Pending 25-Hydroxy Vitamin D3 Pending Folate 15.5 NG/ML (8.6-58.9) Thyroid Stimulating Hormone (TSH) 0.307 uiU/mL (0.358-3.740) Rapid Plasma Reagin Pending Neurologic Exam Objective PHYSICAL EXAMINATION: GENERAL: He is a well-developed, well-nourished, gentleman in no acute distress. HEAD: Normocephalic and atraumatic. NECK: No rigidity was noted. EENT: Benign. NEUROLOGIC EXAMINATION: MENTAL STATUS EXAMINATION: He was awake and alert. He was oriented to person, place and time. He was able to recall 3/3 words immediately but could only remember 2/3 after 1 minute and after 3 minutes. He was able to remember Presidents Trump and Obama only. His mathematical skills were impaired. His visuospatial function was relatively good. SPEECH: He had a mild dysarthria. LANGUAGE: He had an anomia for low and mid-frequency words. CRANIAL NERVE EXAMINATION: II: The visual ann were intact to confrontation testing. III, IV, : External ocular movements were full and pupils 3 mm in diameter equal, round, regular and reactive to light. He had 2 mm of ptosis on the left. V: The facial sensations were normal, and the temporales, masseters and pterygoids functioned normally. VII: He had a trace left VII central paresis. VIII: He was able to hear well bilaterally and had no nystagmus. IX: The palate moved symmetrically on phonation. X: There was no hoarseness of voice. XI: The sternocleidomastoids and trapezii functioned normally. XII: The tongue was in the midline without any fasciculations or atrophy. MOTOR SYSTEM: The tone was normal in all 4 extremities. Examination of muscle mass revealed no focal wasting. Examination of power revealed grade 5/5 power except for G 4+/5 in the left finger extensors and iliopsoas. SENSORY EXAMINATION: Sensations to pinprick and light touch were normal. COORDINATION: [id number] testing was performed well. REFLEXES: 2+ on the left and 2++ on the right at the biceps, triceps, brachioradialis, and knees. 0 at both ankles. Plantar responses were flexor bilaterally. STANCE: He stood up with support. GAIT: He walked with support with a mildly left paretic gait. Impression/Recommendations Diagnostic Impression 1. Mr. 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 2. He was brought to the [facility] Emergency Room for a feeling of being ill, having swallowing problems, feeling generally fatigued, feeling generally weak, and having blood in the urine. 3. He feels better today. He slept relatively well last night. He feels less fatigued. He is able to swallow well. He feels steadier on his feet. The strength is stable. As per his he is close to his normal self. 4. On neurological examination at this time, he does have problems with recent and remote memory, higher cognitive function, and language. He also has left sided ptosis and a left hemiparesis with brisker reflexes on the left. He walks with a left paretic gait. 5. The computed tomography scan of the brain without contrast reveals an old lacunar infarct in the anterior limb of the right internal capsule. 6. The MRI of the brain done on 04/09/18 revealed no acute pathology. But did reveal chronic and age-related changes. A few small punctate areas of susceptibility artifact, in the bilateral basal ganglia and right parietal lobe were seen. 7. The patient's history and neurological examination are most compatible with a remote right brain infarct with a left hemiparesis and recent decline in function due to possible poor nutrition and an acute infection. A new cerebral infarct has been excluded. Recommendations 1. Continue present management. 2. Await EEG to evaluate the patient for inter-ictal phenomena as in the past he has had a seizure. 3. Treatment of hypertension and dyslipidemia. 4. Continue Aspirin 81 mg daily. Mike Monahan M.D., M.S.P.H. Neurologist & Clinical Neurophysiologist MIKE MONAHAN Apr 09, 2018 17:54
--- NOTE | 2018-04-09 18:04 | Cardiology Report ---
APPROVED REPORT EKG Measurement Heart [id number] [place] [id number] Sinus rhythm with premature supraventricular complexes and with occasional premature ventricular complexes Right bundle branch block Abnormal ECG
[2018-04-09 20:00] VITALS: BP 103/77
--- NOTE | 2018-04-09 20:40 | General Progress Note ---
Assessment/Plan Status: progressing Assessment/Plan 1. Generalized weakness with dysphagia, CVA ruled out 2. 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 3. Pyuria,urine neg so far 4. Hypertension. 5. abnormal esophagram with proximal esophagus narrowing PLAN: - continue IV fluids - EGD in am per Gi - continue meds - fu labs Subjective Date patient seen: Apr 09, 2018 Gastrointestinal/Abdominal: Reports: difficulty swallowing Allergies: Coded Allergies: No Known Allergies (Unverified , 03/03/17) Objective Last 24 Hour Vital Signs Date Time Temp Pulse Resp B/P (MAP) Pulse Ox O2 Delivery O2 Flow Rate FiO2 04/09/18 16:08 98.2 90 20 107/76 (86) 97 98.2 04/09/18 15:25 92 04/09/18 12:06 98.2 75 20 120/80 (93) 97 98.2 04/09/18 11:56 75 04/09/18 08:26 74 130/70 04/09/18 07:53 98.2 74 20 130/70 (90) 97 98.2 04/09/18 07:28 74 04/09/18 07:22 Room Air 04/09/18 04:00 77 04/09/18 00:00 98.2 60 20 124/76 (92) 97 98.2 04/09/18 00:00 72 04/08/18 21:11 97 133/58 04/08/18 21:00 Room Air 04/08/18 21:00 Room Air Intake and Output 04/08/18 04/09/18 19:00 07:00 Intake Total 380 ml 50 ml Balance 380 ml 50 ml Intake Oral 120 ml IV Total 260 ml 50 ml # Voids 2 2 # Bowel Movements 1 1 Laboratory Tests 04/09/18 06:40: White Blood Count 6.7, Red Blood Count 4.53L, Hemoglobin 14.0L, Hematocrit 41.2L , Mean Corpuscular Volume 91, Mean Corpuscular Hemoglobin 31.0, Mean Corpuscular Hemoglobin Concent 34.1, Red Cell Distribution Width 10.8L, Platelet Count 203, Mean Platelet Volume 8.0, Neutrophils (%) (Auto) 74.5, Lymphocytes (%) (Auto) 15.9L, Monocytes (%) (Auto) 7.5, Eosinophils (%) (Auto) 1.2, Basophils (%) (Auto) 0.9, Erythrocyte Sedimentation Rate 32H, Sodium Level 142, Potassium Level 3.9, Chloride Level 107, Carbon Dioxide Level 29, Anion Gap 6, Blood Urea Nitrogen 10, Creatinine 0.8, Estimat Glomerular Filtration Rate > 60, Glucose Level 96, Calcium Level 8.1L, Triglycerides Level 66, Cholesterol Level 130, LDL Cholesterol 86, HDL Cholesterol 38L, Cholesterol/HDL Ratio 3.4, Vitamin B12 Level 504, Vitamin D 25-Hydroxy [Pending], 25-Hydroxy Vitamin D2 [Pending], 25-Hydroxy Vitamin D3 [Pending], Folate 15.5, Thyroid Stimulating Hormone (TSH) 0.307L, Rapid Plasma Reagin [Pending] Height (Feet): 5 Height (Inches): 10.00 Weight (Pounds): 166 General Appearance: no apparent distress, alert EENT: PERRL/EOMI, pharynx normal Neck: non-tender, supple Cardiovascular: normal rate, regular rhythm, no gallop/murmur, no JVD Respiratory/Chest: chest wall non-tender, normal breath sounds, no respiratory distress Abdomen: non tender, soft, no mass Extremities: non-tender, normal inspection, no calf tenderness Edema: no edema noted Arm (L), no edema noted Arm (R), no edema noted Leg (L), no edema noted Leg (R), no edema noted Pedal (L), no edema noted Pedal (R), no edema noted Generalized 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
[2018-04-09] MEDS: Atorvastatin 80mg tab ORAL SCH (21:34)
[2018-04-09] MEDS: Miralax 17gm pkt ORAL SCH (21:34)
[2018-04-10] VITALS (8 sets, daily range): BP systolic 100–131; BP diastolic 58–77
[2018-04-10] MEDS: Metoprolol 25mg tab ORAL SCH ×2 (08:06→21:31)
[2018-04-10] MEDS: Cefepime HCl 1 GM in D5W 55 ML IVPB SCH ×2 (08:06→21:29)
[2018-04-10] MEDS: Docusate 100mg cap ORAL SCH ×3 (08:20→17:16)
[2018-04-10] MEDS: Aspirin Baby 81mg ORAL SCH (08:20)
[2018-04-10] MEDS: Lactobacillus-GG tablet ORAL SCH ×3 (08:21→17:16)
[2018-04-10] MEDS: Heparin 5000 units/ml inj SUBQ SCH ×2 (08:22→21:00)
--- NOTE | 2018-04-10 10:00 | Anethesia Preoperative Eval ---
Anesthesia Pre-op PMH/ROS General Date of Evaluation: Apr 10, 2018 Time of Evaluation: 09:52 Anesthesiologist: Galileo Diaz CRNA ASA Score: ASA 3 Mallampati Score Class I : Soft palate, uvula, fauces, pillars visible Class II: Soft palate, uvula, fauces visible Class III: Soft palate, base of uvula visible Class IV: Only hard plate visible Mallampati Classification: Class II Surgeon: Ajith Diagnosis: dysphagia, abdominal bloating Surgical Procedure: Diagnostic EGD Anesthesia History: none - no prior anesthetic complications Family History: no anesthesia problems Allergies: Coded Allergies: No Known Allergies (Unverified , 03/03/17) Medications: see eMAR Past Medical History Cardiovascular: Reports: HTN, arrhythmia - Occasional PAC, PVC, other - hyperlipidemia Gastrointestinal/Genitourinary: Reports: other - admitted 04/08/18 for dysphagia & abdominal bloating. (+) Bladder CA Neurologic/Psychiatric: Reports: CVA - 2017 with LEFT sided weakness, lacunar infarct Endocrine: Denies: DM, hypothyroidism, steroids, other HEENT: Denies: cataract (L), cataract (R), glaucoma, CHEHALIS (L), CHEHALIS (R), other Hematology/Immune: Denies: anemia, DVT, bleeding disorder, other Musculoskeletal/Integumentary: Denies: OA, RA, DJD, DDD, edema, other PMH Narrative: 72 yo male admitted for dysphagia and abdominal bloating, PMH significant for bladdder CA, s/p CVA 2017 Anesthesia Pre-op Phys. Exam Physician Exam Last Vital Signs Date Time Temp Pulse Resp B/P (MAP) Pulse Ox O2 Delivery O2 Flow Rate FiO2 04/10/18 09:08 98.3 82 20 131/77 (95) 97 98.3 04/10/18 09:00 Room Air Constitutional: NAD Neurologic: CN 2-12 intact, other - LEF sided weakness s/p CVA; ambulatory with assistance Cardiovascular: RRR Respiratory: CTA Gastrointestinal: other - abdominal distention Airway Exam Mallampati Score: Class II MO: full ROM: full Anesthesia Pre-op A/P Studies Pre-op Studies: EKG - 04/09/18: NSR with occassional PVC and PAC; RBBB HR 72 Risk Assessment & Plan Assessment: ASA 3, vital signs and labs WNL Plan: MAC Status Change Before Surgery: No Koempel,Marbella [employer]SEMBLER Apr 10, 2018 10:00
[2018-04-10] MEDS ORDERED: Lidocaine 1% MPF 10mg/ml 5ml ONE (11:00)
[2018-04-10] MEDS ORDERED: Propofol 200mg/20ml IV ONE (11:00)
[2018-04-10] MEDS ORDERED: NS 500ML IVPB ONE (11:05)
--- NOTE | 2018-04-10 11:16 | Pre-Procedure Note/Attestation ---
Pre-Procedure Note/Attestation Complete Prior to Procedure Planned Procedure: not applicable Procedure Narrative: Endoscopy with possible biopsy, polypectomy, hemostasis, and dilation Indications for Procedure Pre-Operative Diagnosis: dysphagia Attestation I attest that I discussed the nature of the procedure; its benefits; risks and complications; and alternatives (and the risks and benefits of such alternatives ), prior to the procedure, with the patient (or the patient's legal public service representative). I attest that, if there was a reasonable possibility of needing a blood transfusion, the patient (or the patient's legal public service representative) was given the [facility] standardized written summary, pursuant to the [place] Blood Safety Act ([place] Health and Safety Code # 1645, as amended). I attest that I re-evaluated the patient just prior to the surgery and that there has been no change in the patient's H&P, except as documented below: Amy Canseco MD Apr 10, 2018 11:16
--- NOTE | 2018-04-10 11:55 | Immediate Post-Op Evaluation ---
Immediate Post-Op Evalulation Immediate Post-Op Evalulation Procedure: EGD diagnostic Date of Evaluation: Apr 10, 2018 Time of Evaluation: 11:47 IV Fluids: 0.(% NS, 100 ml Blood Pressure Systolic: 100 Blood Pressure Diastolic: 68 Pulse Rate: 55 Respiratory Rate: 25 O2 Sat by Pulse Oximetry: 97 Temperature (Fahrenheit): 98.1 Pain Score (1-10): 0 Nausea: No Vomiting: No Complications none Patient Status: awake, patent Hydration Status: adequate Marbella Diaz CRNA Apr 10, 2018 11:55
--- NOTE | 2018-04-10 11:57 | General Progress Note ---
Assessment/Plan Assessment/Plan Assessment - dysphagia - constipation, per KUB - resolved Recommendations - dulcolax supp.- PRN - EGD today POST ENDOSOCPY ADDENDUM EGD: GERD with lower esophageal erosions, Multiple biopsies done Adenoid erythema and hypertrophy seen, ? significance Rec ENT consult. CT of neck ordered. Subjective Allergies: Coded Allergies: No Known Allergies (Unverified , 03/03/17) Subjective above noted (+) BM with dulcolax d/w family in GI lab Objective Last 24 Hour Vital Signs Date Time Temp Pulse Resp B/P (MAP) Pulse Ox O2 Delivery O2 Flow Rate FiO2 04/10/18 09:08 98.3 82 20 131/77 (95) 97 98.3 04/10/18 09:00 Room Air 04/10/18 08:06 82 131/77 04/10/18 08:00 84 04/10/18 04:00 97.3 63 21 125/74 (91) 97 97.3 04/10/18 04:00 64 04/10/18 00:00 63 04/09/18 21:34 82 103/77 04/09/18 21:00 Room Air 04/09/18 20:00 82 04/09/18 20:00 97.7 81 21 103/77 (86) 95 97.7 04/09/18 16:08 98.2 90 20 107/76 (86) 97 98.2 04/09/18 15:25 92 04/09/18 12:06 98.2 75 20 120/80 (93) 97 98.2 04/09/18 11:56 75 Intake and Output 04/09/18 04/10/18 19:00 07:00 Intake Total 700 ml 505.0 ml Output Total 200 ml Balance 700 ml 305.0 ml Intake Oral 240 ml IV Total 460 ml 505.0 ml Output Urine Total 200 ml # Bowel Movements 1 Height (Feet): 5 Height (Inches): 10.00 Weight (Pounds): 166 Objective WDWN NCAT supple CTA RRR soft ND no edema non focal Amy Canseco MD Apr 10, 2018 11:57
--- NOTE | 2018-04-10 11:59 | Endoscopy Procedure Note ---
Endoscopy Procedure Note General Indication for Procedure: dysphagia Procedures Performed: EGD Operative Findings/Diagnosis: GERD, adenoid hypertrophy Specimen: yes Pt Tolerated Procedure Well: Yes Estimated Blood Loss: none Anesthesia Anesthesiologist: Marbella/JACKSON Anesthesia: MAC, moderate sedation Medications Medication Given: see anesthesia record Inserted Devices Implant(s) used?: No GI Core Measures 50 yrs or older w/o bx or poly: Not Applicable 10yrs. F/U not recommended: Not Applicable If not recommended, why?: Amy Canseco MD Apr 10, 2018 11:59
--- NOTE | 2018-04-10 12:00 | Brief Operative Note ---
Immediate Post Operative Note Operative Note Chief Complaint: dysphagia Pre-op Diagnosis: dysphagia Procedure: EGD bx Post-op Diagnosis: EGD: GERD with lower esophageal erosions, Multiple biopsies done Adenoid erythema and hypertrophy seen, ? significance Rec ENT consult. CT of neck ordered. Surgeon: poli Anesthesiologist: shruti PAZ Anesthesia: MAC Specimen: yes Complications: none Condition: stable Fluids: recorded Estimated Blood Loss: none Drains: none Implant(s) used?: No Amy Canseco MD Apr 10, 2018 12:00
--- NOTE | 2018-04-10 19:15 | Neurology Progress Note ---
Interim History Interim History Interim History Mr. Tejeda feels better. He slept well last night. He feels less fatigued. He is able to swallow well today. He feels steadier on his feet. The strength is stable. He denies any new neurologic symptoms. Review of Systems Neuro Review of Systems Benign. Objective Physical Exam Last Vital Signs Date Time Temp Pulse Resp B/P (MAP) Pulse Ox O2 Delivery O2 Flow Rate FiO2 04/10/18 16:00 70 04/10/18 12:05 25 109/59 97 Room Air 04/10/18 11:55 208.6 04/10/18 11:46 2 Neurologic Exam Objective PHYSICAL EXAMINATION: GENERAL: He is a well-developed, well-nourished, gentleman in no acute distress. HEAD: Normocephalic and atraumatic. NECK: No rigidity was noted. EENT: Benign. NEUROLOGIC EXAMINATION: MENTAL STATUS EXAMINATION: He was awake and alert. He was oriented to person, place and time except for the exact date. He was able to recall 3/3 words immediately but could only remember 2/3 after 1 minute and after 3 minutes. He was able to remember Presidents Trump and Obama only. His mathematical skills were impaired. His visuospatial function was relatively good. SPEECH: He had a mild dysarthria. LANGUAGE: He had an anomia for low and mid-frequency words. CRANIAL NERVE EXAMINATION: II: The visual ann were intact to confrontation testing. III, IV, : External ocular movements were full and pupils 3 mm in diameter equal, round, regular and reactive to light. He had 2 mm of ptosis on the left. V: The facial sensations were normal, and the temporales, masseters and pterygoids functioned normally. VII: He had a trace left VII central paresis. VIII: He was able to hear well bilaterally and had no nystagmus. IX: The palate moved symmetrically on phonation. X: There was no hoarseness of voice. XI: The sternocleidomastoids and trapezii functioned normally. XII: The tongue was in the midline without any fasciculations or atrophy. MOTOR SYSTEM: The tone was normal in all 4 extremities. Examination of muscle mass revealed no focal wasting. Examination of power revealed grade 5/5 power except for G 4+/5 in the left finger extensors and iliopsoas. SENSORY EXAMINATION: Sensations to pinprick and light touch were normal. COORDINATION: Cmtfma-[id number]-ktam testing was performed well. REFLEXES: 2+ on the left and 2++ on the right at the biceps, triceps, brachioradialis, and knees. 0 at both ankles. Plantar responses were flexor bilaterally. STANCE: He stood up with support. GAIT: He walked with support with a mildly left paretic gait. Impression/Recommendations Diagnostic Impression 1. Mr. 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 2. He was brought to the [facility] Emergency Room for a feeling of being ill, having swallowing problems, feeling generally fatigued, feeling generally weak, and having blood in the urine. 3. He feels better. He slept well last night. He feels less fatigued. He is able to swallow well today. He feels steadier on his feet. The strength is stable.He denies any new neurologic symptoms. 4. On neurological examination at this time, he does have problems with recent and remote memory, higher cognitive function, and language. He also has left sided ptosis and a left hemiparesis with brisker reflexes on the left. He walks with a left paretic gait. 5. The computed tomography scan of the brain without contrast reveals an old lacunar infarct in the anterior limb of the right internal capsule. 6. The MRI of the brain done on 04/09/18 revealed no acute pathology. But did reveal chronic and age-related changes. A few small punctate areas of susceptibility artifact, in the bilateral basal ganglia and right parietal lobe were seen. 7. The EEG revealed a mild encephalopathy. 8. The patient's history and neurological examination are most compatible with a remote right brain infarct with a left hemiparesis and recent decline in function due to possible poor nutrition and an acute infection. A new cerebral infarct has been excluded. Recommendations 1. Continue present management. 2. Treatment of hypertension and dyslipidemia. 3. Continue Aspirin 81 mg daily. Mike Monahan M.D., M.S.P.H. Neurologist & Clinical Neurophysiologist MIKE MONAHAN Apr 10, 2018 19:15
--- NOTE | 2018-04-10 19:45 | Electroencephalogram ---
DATE OF PROCEDURE: 04/09/2018 REQUESTING PHYSICIAN: Vladimir Nicole M.D. READING PHYSICIAN: Rubin Monahan M.D. HISTORY: This EEG was performed on a 72-year-old gentleman with a history of multiple medical problems including cerebrovascular disease, prior history of seizures, and recently failure to thrive. The purpose of this EEG was to evaluate the patient for the degree and type of cerebral dysfunction and to exclude ongoing ictal or interictal phenomena. TECHNICAL NOTE: This EEG was performed on a [employer] with electrodes placed on the scalp according to the international 10-20 system. Yfuka-iv-sdnfp and gnokm-iu-qiv montages were used. The EEG was technically satisfactory and was performed in the awake and drowsy states. OBSERVATIONS: In the best awake state, the background activity consisted predominantly of 7 to 7.5 hertz theta activity with some intermixed alpha frequencies. Drowsiness was characterized by slowing of the background in the 5 to 6 hertz theta range. No focal abnormalities or epileptiform discharges were seen. IMPRESSION: This is an abnormal EEG characterized by slowing of the background predominantly in the 7 to 7.5 hertz theta range with some intermixed alpha frequencies. COMMENT: The study is consistent with an encephalopathy of a mild degree. Rubin Monahan M.D. DR: BRET JOB#: [id number] CC:
--- NOTE | 2018-04-10 20:47 | General Progress Note ---
Assessment/Plan Status: progressing Assessment/Plan 1. Generalized weakness with dysphagia, CVA ruled out 2. 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 3. Pyuria,urine neg so far 4. Hypertension. 5. EGD findings of GERD PLAN: - continue IV fluids - EGD in am per Gi - continue meds - fu labs - add protonix per Dr. Huynh - testicular us - lotrimin cream bid - doxycycline 100 mg bid - add flomax 0.4 mg daily - urine culture and GC/Chlamydia - CT neck ordered per GI pending discussed with nurse Subjective Date patient seen: Apr 10, 2018 Genitourinary: Reports: pain, other Allergies: Coded Allergies: No Known Allergies (Unverified , 03/03/17) Objective Last 24 Hour Vital Signs Date Time Temp Pulse Resp B/P (MAP) Pulse Ox O2 Delivery O2 Flow Rate FiO2 04/10/18 16:00 70 04/10/18 12:05 60 25 109/59 97 Room Air 04/10/18 12:00 63 04/10/18 11:55 208.6 55 25 97 04/10/18 11:51 60 25 112/68 97 Room Air 04/10/18 11:46 57 25 108/68 97 Nasal Cannula 2 04/10/18 11:41 98.1 55 25 100/68 97 Nasal Cannula 2 98.1 04/10/18 09:08 98.3 82 20 131/77 (95) 97 98.3 04/10/18 09:00 Room Air 04/10/18 08:06 82 131/77 04/10/18 08:00 84 04/10/18 04:00 97.3 63 21 125/74 (91) 97 97.3 04/10/18 04:00 64 04/10/18 00:00 63 04/09/18 21:34 82 103/77 04/09/18 21:00 Room Air Intake and Output 04/09/18 04/10/18 19:00 07:00 Intake Total 700 ml 505.0 ml Output Total 200 ml Balance 700 ml 305.0 ml Intake Oral 240 ml IV Total 460 ml 505.0 ml Output Urine Total 200 ml # Bowel Movements 1 Height (Feet): 5 Height (Inches): 10.00 Weight (Pounds): 166 General Appearance: no apparent distress, alert EENT: PERRL/EOMI, pharynx normal Neck: non-tender, supple Cardiovascular: normal rate, regular rhythm, no gallop/murmur, no JVD Respiratory/Chest: chest wall non-tender, normal breath sounds, no respiratory distress Abdomen: non tender, soft, no mass Genitourinary/Rectal: other - left testicular enlargement, scrotal eruythema Extremities: non-tender, normal inspection, no calf tenderness Edema: no edema noted Arm (L), no edema noted Arm (R), no edema noted Leg (L), no edema noted Leg (R), no edema noted Pedal (L), no edema noted Pedal (R), no edema noted Generalized Skin: rash Vladimir Nicole MD Apr 10, 2018 20:47
[2018-04-10] MEDS ORDERED: Tamsulosin 0.4mg cap ORAL SCH (21:00)
[2018-04-10] MEDS: Atorvastatin 80mg tab ORAL SCH (21:30)
[2018-04-10] MEDS: Miralax 17gm pkt ORAL SCH (21:32)
[2018-04-11 01:44] LABS: APPEARANCE,URINE CLEAR; BILIRUBIN, URINE NEGATIVE (NEGATIVE); COLOR,URINE PALE YELLOW; GLUCOSE, URINE (UA) NEGATIVE (NEGATIVE); KETONES,URINE NEGATIVE (NEGATIVE); LEUKOCYTE ESTERASE ,URINE 1+ (NEGATIVE); NITRITE,URINE NEGATIVE (NEGATIVE); PH,URINE 6 (4.5-8.0); PROTEIN,URINE NEGATIVE (NEGATIVE); UROBILINOGEN,URINE NORMAL MG/DL (0.0-1.0)
--- NOTE | 2018-04-11 02:00 | Procedure Note ---
DATE OF PROCEDURE: 04/10/2018 PROCEDURE: Upper gastrointestinal endoscopy with biopsy. SURGEON: Amy Canseco M.D. ANESTHESIA: Please see the separate anesthesiologist notes for details. PRE-ENDOSCOPIC DIAGNOSIS: Dysphagia. POST-ENDOSCOPIC DIAGNOSES: 1. Gastroesophageal reflux disease with reflux-related erosions in the lower esophagus. 2. Somewhat hypertrophied adenoid area in the pharynx of unclear significance. DESCRIPTION OF PROCEDURE: The procedure, its risks, indications, and alternatives were explained to the patient, and informed consent was obtained. The patient was sedated, and a diagnostic upper endoscope was introduced through the oropharynx and advanced to the duodenum. Random biopsies of the duodenum and antrum were obtained. Lower esophagus showed some evidence of gastric erosions consistent with esophagitis. Upon withdrawal phase, in the pharynx, the adenoid area appeared to be somewhat hypertrophied, but the significance of this was unclear. The patient was sent to recovery in good condition. COMPLICATIONS: None. RECOMMENDATIONS: 1. Add proton pump inhibitor daily. 2. CT scan of the neck. 3. ENT evaluation for the adenoid area. Amy Canseco M.D. DR: SADIE JOB#: [id number] CC: SHIV
[2018-04-11 04:00] VITALS: BP 109/51
[2018-04-11 08:00] VITALS: BP 117/75
[2018-04-11] MEDS: Docusate 100mg cap ORAL SCH ×2 (08:25→12:49)
[2018-04-11] MEDS: Cefepime HCl 1 GM in D5W 55 ML IVPB SCH (08:26)
[2018-04-11] MEDS: Lactobacillus-GG tablet ORAL SCH ×2 (08:29→12:49)
[2018-04-11] MEDS: Aspirin Baby 81mg ORAL SCH (08:29)
[2018-04-11] MEDS: Heparin 5000 units/ml inj SUBQ SCH (08:31)
[2018-04-11] MEDS: Metoprolol 25mg tab ORAL SCH (08:32)
[2018-04-11 11:06] VITALS: BP 110/69
--- NOTE | 2018-04-11 12:03 | 48 Hour Post Anesthesia Eval ---
Post Anesthesia Evaluation Procedure: EGD diagnostic Date of Evaluation: Apr 11, 2018 Time of Evaluation: 12:02 Blood Pressure Systolic: 110 0: 69 Pulse Rate: 75 Respiratory Rate: 18 Temperature (Fahrenheit): 97.5 O2 Sat by Pulse Oximetry: 96 Airway: patent Nausea: No Vomiting: No Pain Intensity: 0 Hydration Status: adequate Cardiopulmonary Status: stable, no overnight events Mental Status/LOC: patient returned to baseline Follow-up Care/Observations: none Post-Anesthesia Complications: none Follow-up care needed: N/A Marbella Diaz CRNA Apr 11, 2018 12:03
[2018-04-11 12:05] VITALS: BP 110/69
[2018-04-11] MEDS ORDERED: 1/2 NS 1000ml IV ONE (14:24)
--- NOTE | 2018-04-11 14:36 | Diagnostic Imaging Report ---
Indication: DYSPHAGIA Technique: No IV contrast, per referring physician request. Spiral acquisitions obtained through the there Multiplanar reconstructions were generated. Total dose length product 692.41 mGycm. CTDIvol(s) 17.26,24.06 mGy. Radiation dose was minimized using automated exposure control Comparison: none Findings: The esophagus is unremarkable. The nasopharynx, oropharynx, hypopharynx and larynx are all unremarkable. Multiple nodules are seen in the left thyroid lobe, which is enlarged. Largest nodule measures 2 cm long axis dimension. No cervical mass or adenopathy otherwise. The salivary glands are unremarkable. No prevertebral soft tissue swelling. The parapharyngeal spaces are clear and symmetric. The included sinuses are clear. The dentition is intact. There are mild degenerative spondylosis changes of the cervical spine. The included upper lungs are clear. The upper mediastinum is unremarkable Impression: Large left thyroid lobe with multiple nodules. Further sonographic evaluation should be considered No findings to suggest etiology of stated clinical history of dysphasia otherwise Mild degenerative spondylosis incidentally noted The CT scanner at [facility] is accredited by the [employer] and the scans are performed using protocols designed to limit radiation exposure to as low as reasonably achievable to attain images of sufficient resolution adequate for diagnostic evaluation.
--- NOTE | 2018-04-11 15:44 | Discharge Summary ---
Discharge Summary Discharge Summary _ DATE OF ADMISSION: 04/08/2018 DATE OF DISCHARGE 04/11/2018 CONSULTANTS: Dr. Rubin Canseco BRIEF HOSPITAL COURSE: Patient is a 72-year-old male, who came from home with history of stroke last year. Apparently been doing well but was unable to eat and swallow well since the time of stroke. He had been having difficulty eating and had dysphagia on both solids and liquids. Symptoms had progressed. He woke up in the morning of admission and felt extreme generalized weakness. He then presented to ED. He has medical history significant for prior stroke and prostatic CA. On evaluation at ED, vital signs were stable. Head CT showed chronic age- related changes with an old right internal capsule lacunar infarct. Negative for acute intracranial bleed or mass effect. Troponin was negative. Urinalysis showed pyuria. Toxicology was positive for opiates. He was then admitted for cardiac and neurologic evaluation and for evaluation of dysphagia. Patient was admitted to telemetry. He was continued on his home medications including aspirin, metoprolol, Flomax and atorvastatin. He was started empirically on cefepime pending culture results. There was no arrhythmia noted on the monitor. He underwent neuro evaluation. MRI of the brain was negative for acute intracranial bleed, mass effect or infarct. He had history of seizure disorder and underwent EEG that showed encephalopathy of mild degree. New cerebral infarct was excluded. Carotid ultrasound showed mild stenosis on the right internal carotid artery and minimal stenosis on the right external carotid artery; left internal and external carotid artery with minimal stenosis. He was continued on statins and aspirin. He complained of dysphagia. He underwent speech therapy. He was seen by GI. He was initially placed on pured diet. X-ray of esophagus showed an unusual appearance to the distal esophagus, with apparent and constant narrowing at the distal esophageal sphincter, proximal dilatation and delayed emptying out of proportion to the degree of narrowing. KUB showed considerable colonic stool, diffusely mildly distended gas filled small bowel loops, possible ileus. On 04/10/2018, he underwent upper GI endoscopy with biopsy. Findings showed gastroesophageal reflux disease with reflux related erosions in the lower esophagus. There was somewhat hypertrophied adenoid in the pharynx of unclear significance. He was given proton pump inhibitors. He was recommended ENT evaluation. CT of the neck showed a large left thyroid lobe with multiple nodules. He complained of swollen scrotum. He was checked for chlamydia and syphilis. Syphilis screen was negative. Chlamydia results still pending. He was given doxycycline. Clotrimazole cream was applied to the groins and external genitalia. There was no ENT available to see patient in the hospital. CT findings of the neck stable at this time, further workup to be done as outpatient. Patient was eager to go home he was then discharged home. 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 DISCHARGE MEDICATIONS: Refer to Discharge Medication List. DISCHARGE INSTRUCTIONS: Follow up in the office on 04/14/2018. I have been assigned to dictate discharge summary on this account, and I was not involved in the patient's management. Tiffany Asif NP Apr 11, 2018 15:44
== END 2018-04-11 14:25 | disposition home or self-care (01) | DRG 56 ==
LOC: EMR 09:58 → UNDOADMIN 10:30 → 2E 10:30 → EDBEDREQ 11:42
PROC: 4A00X4Z Measurement of Central Nervous Electrical Activity, External Approach (ICD-10-PCS; principal; 2018-04-09)
PROC: 0DD98ZX Extraction of Duodenum, Via Natural or Artificial Opening Endoscopic, Diagnostic (ICD-10-PCS; 2018-04-10)
PROC: 0DD68ZX Extraction of Stomach, Via Natural or Artificial Opening Endoscopic, Diagnostic (ICD-10-PCS; 2018-04-10)
DX: I69.991 Dysphagia following unspecified cerebrovascular disease (principal); G93.40 Encephalopathy, unspecified; I69.354 Hemiplegia and hemiparesis following cerebral infarction affecting left non-dominant side; R13.10 Dysphagia, unspecified; F32.9 Major depressive disorder, single episode, unspecified; K20.9 Esophagitis, unspecified; K59.00 Constipation, unspecified; I10 Essential (primary) hypertension; E78.5 Hyperlipidemia, unspecified; K21.9 Gastro-esophageal reflux disease without esophagitis; N41.9 Inflammatory disease of prostate, unspecified; E04.1 Nontoxic single thyroid nodule; J35.2 Hypertrophy of adenoids; Z79.82 Long term (current) use of aspirin; Z85.51 Personal history of malignant neoplasm of bladder
CPT/HCPCS: 36415; 70450; 70490; 70553; 71045; 74018; 74220; 74230; 80048; 80053; 80061; 80307; 80329; 81003; 82306; 82550; 82607; 82746; 83036; 83880; 84443; 84484; 85025; 85610; 85651; 85730; 86592; 87086; 87491; 93005; 93880; 95819; 99285; A9585